=== PATIENT | female | born 1935 | race Caucasian/White ===

== ENCOUNTER → 2016-05-30 | Outpatient (CLI) | payer MEDICARE, BC ==
[~2016-05-30] MED LIST: ACETAMINOPHEN PO; ALDACTONE25 MG PO; ASPIRIN; ASPIRIN81 MG PO; AVALIDE 150-12.1 TAB PO; B12 5,000 MCG1 EACH SL; BETAPACE PO; CANASA1000 MG/S1; CARVEDILOL3.125 MG PO; CELEXA20 MG PO; COREG3.125 MG PO; CORGARD PO; COUMADIN PO; COUMADIN2.5 MG PO; DARVOCET-N 1001 TA2 PO; ENTRESTO PO; FERROUS GLUCON324 MG PO; FLECAINIDE ACE100 MG PO; FUROSEMIDE40 MG PO; HCTZ PO; IRON1 TAB PO; KEFLEX PO; KEFLEX250 M1 PO; LEVOTHYROXINE75 MC1 PO; LISINOPRIL; LOMOTIL TABLET1 TAB; LOMOTIL TABLET1 TAB PO; LOPRESSOR PO; LORTAB 5/500 TA1 TA1 PO; NORCO 5/325 TAB1 TAB PO; NORPACE CR150 MG PO; NORVASC PO; OXYIR5 MG PO; PEPCID PO; PERCOCET5/325 PO; POTASSIUM CHLO10 ME1 PO; PREDNISONE PO; PRILOSEC PO; SYNTHROID PO; SYNTHROID0.05 MG PO; TYLENOL325 M1; TYLENOL325 M1 PO; VITAMIN D 3 PO; ZESTRIL10 MG PO
== END | disposition home or self-care (01) ==
LOC: CLAB 16:24
DX: E87.5 Hyperkalemia (principal)
CPT/HCPCS: 36415; 84132